=== PATIENT | female | born 1985 ===

== ENCOUNTER 2017-05-09 21:35 | Emergency (ER) | payer MEDICAID, OTHER ==
[2017-05-09 21:36] VITALS: BMI 20.3
[2017-05-09 21:55] VITALS: BP 121/84; PULSE 89; RESP 16; TEMP 98; O2SAT 97
--- NOTE | 2017-05-09 22:37 | ED PDOC ---
Lower Extremity Pain/Injury Time Seen by Provider: 05/09/17 21:54 Chief Complaint (Nursing): Lower Extremity Problem/Injury Chief Complaint (Provider): Left ankle pain, swelling x 2 days History Per: Patient History/Exam Limitations: no limitations Onset/Duration Of Symptoms: Days Current Symptoms Are (Timing): Still Present Additional Complaint(s): PT reports left ankle and low leg swelling for 2 days. Pt denies trauma. Pt states she has history of arthritis and does not some edema but this is more than normal. No fever/chills. PT reports ankle and calf pain. Past Medical History Reviewed: Historical Data, Nursing Documentation, Vital Signs Vital Signs: Last Vital Signs Temp 98 F 05/09/17 21:52 Pulse 89 05/09/17 21:52 Resp 16 05/09/17 21:52 BP 121/84 05/09/17 21:52 Pulse Ox 97 05/09/17 21:52 - Medical History PMH: Arthritis, Asthma, Rheumatoid Arthritis Denies: Diabetes, Hepatitis, HIV, HTN, Seizures, Sexually Transmitted Disease - Surgical History Surgical History: No Surg Hx - Family History Family History: States: Unknown Family Hx - Living Arrangements Living Arrangements: With Family - Social History Current smoker - smoking cessation education provided: No Alcohol: Occasional Drugs: Cannabis, Opiates - Immunization History Hx Tetanus Toxoid Vaccination: Yes Hx Influenza Vaccination: No Hx Pneumococcal Vaccination: No - Home Medications Home Medications: Ambulatory Orders Medication Instructions Recorded Albuterol HFA [Ventolin HFA 90 2 puff INH PRN PRN 01/11/17 mcg/actuation (8 g)] Ibuprofen [Motrin] 1,200 mg PO BID PRN 01/29/17 Albuterol HFA [Ventolin HFA 90 1 puff INH RQ4 PRN #1 inhaler 02/01/17 mcg/actuation (8 g)] Gabapentin [Neurontin] 300 mg PO BID #60 cap 02/01/17 traZODone [Desyrel] 50 mg PO HS PRN #30 tab 02/01/17 predniSONE [predniSONE Tab] 20 mg PO DAILY #12 tab 05/10/17 - Allergies Allergies/Adverse Reactions: Allergies Allergy/AdvReac Type Severity Reaction Status Date / Time No Known Allergies Allergy Verified 01/17/17 08:18 Review of Systems ROS Statement: Except As Marked, All Systems Reviewed And Found Negative Cardiovascular: Positive for: Edema Musculoskeletal: Positive for: Leg Pain Physical Exam - Reviewed Nursing Documentation Reviewed: Yes Vital Signs Reviewed: Yes - Physical Exam Appears: Positive for: Well, Non-toxic, No Acute Distress Head Exam: Positive for: ATRAUMATIC, NORMAL INSPECTION, NORMOCEPHALIC Skin: Positive for: Normal Color, Warm, DRY Eye Exam: Positive for: Normal appearance ENT: Positive for: Normal ENT Inspection Neck: Positive for: Normal, Painless ROM Cardiovascular/Chest: Positive for: Regular Rate, Rhythm Respiratory: Positive for: Normal Breath Sounds. Negative for: Accessory Muscle Use Pulses-Dorsalis Pedis (L): 2+ Pulses-Dorsalis Pedis (R): 2+ Pulses-Post. Tibialis (L): 2+ Pulses-Post. Tibialis (R): 2+ Back: Positive for: Normal Inspection Extremity: Positive for: Normal ROM, Pedal Edema, Capillary Refill, Swelling ( Left lower leg ). Negative for: Tenderness, Deformity Neurologic/Psych: Positive for: Alert, Oriented - ECG O2 Sat by Pulse Oximetry: 97 Medical Decision Making Medical Decision Making: (-) DVT Normal ankle x-ray Disposition - Clinical Impression Clinical Impression: Leg edema, left - Patient ED Disposition Is Patient to be Admitted: No Counseled Patient/Family Regarding: Diagnosis, Need For Followup, Rx Given - Disposition Referrals: [facility] [Outside] [facility] [Outside] Disposition: Routine/Home Disposition Time: 00:01 Condition: GOOD Prescriptions: predniSONE [predniSONE Tab] 20 mg PO DAILY #12 tab Instructions: Leg Edema (ED)
--- NOTE | 2017-05-09 23:47 | US ---
EXAM: US Duplex Left Lower Extremity Veins CLINICAL HISTORY: 31 years old, female; Pain; Leg, lower; Left; Additional info: Calf pain, swelling TECHNIQUE: Real-time ultrasound scan of the veins of the left lower extremity with color Doppler flow, spectral waveform analysis and compression. COMPARISON: No relevant prior studies available. FINDINGS: Deep veins: Normal color and spectral Doppler flow. Normal compressibility. No deep vein thrombosis from common femoral to popliteal vein. Superficial veins: No thrombosis. Soft tissues: No popliteal cyst. IMPRESSION: 1. No evidence of DVT within LEFT lower extremity. 2. Incidental/non-acute findings are described above.
--- NOTE | 2017-05-10 11:37 | RAD ---
PROCEDURE: Left Ankle Radiographs. HISTORY: pain, swelling COMPARISON: None available. FINDINGS: BONES: No acute displaced fracture. JOINTS: No dislocation. SOFT TISSUES: Marked soft tissue swelling. No evidence of radiopaque foreign body. OTHER FINDINGS: None. IMPRESSION: Marked soft tissue swelling. No acute displaced fracture or dislocation identified. If high clinical index of suspicion persists for occult fracture, cross-sectional imaging may be considered.
== END 2017-05-10 00:07 | disposition home or self-care (01) ==
LOC: H.ER 21:35
DX: R60.0 Localized edema (principal); M19.072 Primary osteoarthritis, left ankle and foot

== ENCOUNTER 2017-07-30 22:53 | Emergency (ER) | payer MEDICAID, OTHER ==
[2017-07-30 22:53] VITALS: BMI 20.3
[2017-07-30 23:05] VITALS: BP 137/63; PULSE 76; RESP 16; TEMP 98.2; O2SAT 100
--- NOTE | 2017-07-31 00:06 | ED PDOC ---
Lower Extremity Pain/Injury Time Seen by Provider: 07/30/17 23:26 Chief Complaint (Nursing): Lower Extremity Problem/Injury Chief Complaint (Provider): left ankle pain/swelling History Per: Patient History/Exam Limitations: no limitations Onset/Duration Of Symptoms: Days (4) Current Symptoms Are (Timing): Still Present Additional History Per: Patient Additional Complaint(s): 32 y/o female history of rheumatoid arthritis presents with atraumatic left ankle pain/swelling x 4 days. Patient notes similiar symptoms in past, states she works on her feet all day. Patient seen in [facility] ED twice for same, most recently yesterday, and prescribed Percocet, Prednisone, and Naproxen without improvement. Pain now radiates up left leg. Denies fever, nausea/vomiting, chest pain, shortness of breath, palpitations, recent travel, OCP use. Past Medical History Reviewed: Historical Data, Nursing Documentation, Vital Signs Vital Signs: Last Vital Signs Temp 98.2 F 07/30/17 23:02 Pulse 76 07/30/17 23:02 Resp 16 07/30/17 23:02 BP 137/63 07/30/17 23:02 Pulse Ox 100 07/30/17 23:02 - Medical History PMH: Arthritis, Asthma, Rheumatoid Arthritis Denies: HIV, HTN, Seizures, Sexually Transmitted Disease - Surgical History Surgical History: No Surg Hx - Family History Family History: States: Unknown Family Hx - Immunization History Hx Tetanus Toxoid Vaccination: No Hx Influenza Vaccination: No Hx Pneumococcal Vaccination: No - Home Medications Home Medications: Ambulatory Orders Medication Instructions Recorded Famotidine [Pepcid] 20 mg PO BID #20 tab 07/29/17 Naproxen [Naprosyn] 1 tab PO BID PRN #25 tab 07/29/17 oxyCODONE/Acetaminophen [Percocet 1 tab PO QID PRN #14 tab 07/29/17 5/325 mg Tab] predniSONE [predniSONE Tab] 2 tab PO DAILY #8 tab 07/29/17 - Allergies Allergies/Adverse Reactions: Allergies Allergy/AdvReac Type Severity Reaction Status Date / Time No Known Allergies Allergy Verified 07/30/17 23:01 Review of Systems ROS Statement: Except As Marked, All Systems Reviewed And Found Negative Musculoskeletal: Positive for: Leg Pain (left ankle) Physical Exam - Reviewed Nursing Documentation Reviewed: Yes Vital Signs Reviewed: Yes - Physical Exam Appears: Positive for: Well, Non-toxic, No Acute Distress (sleeping) Head Exam: Positive for: ATRAUMATIC, NORMAL INSPECTION, NORMOCEPHALIC Skin: Positive for: Normal Color Eye Exam: Positive for: Normal appearance Cardiovascular/Chest: Positive for: Regular Rate, Rhythm Respiratory: Positive for: Normal Breath Sounds Extremity: Positive for: Normal ROM, Calf Tenderness (left), Swelling (left ankle with + tenderness) - Laboratory Results Result Diagrams: 07/31/17 00:32 07/31/17 00:32 - ECG O2 Sat by Pulse Oximetry: 100 - Progress ED Course And Treament: Case discussed with ED attending Dr. Genao, will order labs including ESR and treat with IV solumedrol and toradol. EXAM: US Duplex Left Lower Extremity Veins CLINICAL HISTORY: 32 years old, female; Pain; Leg, lower; Left; Patient HX: Rheumatoid arthritis; Additional info: Pain/swelling TECHNIQUE: Real-time ultrasound scan of the veins of the left lower extremity with color Doppler flow, spectral waveform analysis and compression. COMPARISON: No relevant prior studies available. FINDINGS: Deep veins: Normal color and spectral Doppler flow. Normal compressibility. No deep vein thrombosis from common femoral to popliteal vein. Superficial veins: No thrombosis. Soft tissues: No popliteal cyst. IMPRESSION: 1. No evidence of DVT within LEFT lower extremity On re-eval, patient sleeping; upon awakening states she is feeling better. Patient educated on findings, discharged with instructions to continue current medications and follow up PMD/toolmaker. Ankle wrapped in BANDAR compression. Advised RICE. Return to ED for worsening/concerning symptoms. Disposition - Clinical Impression Clinical Impression: Leg edema, left - Patient ED Disposition Is Patient to be Admitted: No Counseled Patient/Family Regarding: Studies Performed, Diagnosis, Need For Followup - Disposition Referrals: Lizet Levy MD [Primary Care Provider] - Disposition: Routine/Home Disposition Time: 02:58 Condition: IMPROVED Instructions: Leg Edema (ED), Arthralgia (ED)
[2017-07-31 00:38] LABS: BASO # 0.1 K/uL (0.0-0.2); BASO % 0.7 % (0.0-2.0); EOS # 0.1 K/uL (0.0-0.7); EOS % 0.8 % (0.0-4.0); HEMATOCRIT 39.6 % (34.0-47.0); LYMPH # 2.5 K/uL (1.0-4.3); LYMPH % 29.4 % (20.0-40.0); MEAN CELL VOLUME 94.3 fl (81.0-99.0); MEAN CORPUSCULAR HGB CONC 32.8 g/dL (33.0-37.0); MEAN PLATELET VOLUME 9.3 fl (7.2-11.7); MONO # 0.6 K/uL (0.0-0.8); MONO % 7.2 % (0.0-10.0); NEUT # 5.3 K/uL (1.8-7.0); NEUT % 61.9 % (50.0-75.0); NRBC % 0.1 % (0.0-0.0); WHITE BLOOD COUNT 8.5 K/uL (4.8-10.8)
[2017-07-31 00:44] LABS: BLOOD UREA NITROGEN 13 mg/dl (7-17); CALCIUM 9.2 mg/dL (8.4-10.2); CARBON DIOXIDE 26 mmol/L (22-30); CHLORIDE 103 mmol/L (98-107); GFR AFRICAN-AMERICAN > 60; GLUCOSE,RANDOM 98 mg/dL (65-105); POTASSIUM 4.2 MMOL/L (3.6-5.0); SODIUM 137 mmol/l (132-148)
--- NOTE | 2017-07-31 02:26 | US ---
EXAM: US Duplex Left Lower Extremity Veins CLINICAL HISTORY: 32 years old, female; Pain; Leg, lower; Left; Patient HX: Rheumatoid arthritis; Additional info: Pain/swelling TECHNIQUE: Real-time ultrasound scan of the veins of the left lower extremity with color Doppler flow, spectral waveform analysis and compression. COMPARISON: No relevant prior studies available. FINDINGS: Deep veins: Normal color and spectral Doppler flow. Normal compressibility. No deep vein thrombosis from common femoral to popliteal vein. Superficial veins: No thrombosis. Soft tissues: No popliteal cyst. IMPRESSION: 1. No evidence of DVT within LEFT lower extremity.
== END 2017-07-31 04:05 | disposition home or self-care (01) ==
LOC: H.ER 22:53
DX: R60.0 Localized edema (principal); M06.9 Rheumatoid arthritis, unspecified
CPT/HCPCS: 80048; 81025; 85025; 85651; 93971; 96374; 96375; 99282; J1885; J2930